=== PATIENT | female | born 1985 | race Caucasian/White ===

== ENCOUNTER 2017-04-04 18:45 | Emergency (ER) | payer BC ==
[~2017-04-04] VITALS: Ht 162.6 cm; Wt 84.6 kg
[2017-04-04 18:50] VITALS: TEMP 36.7; Ht 162.6 cm; Wt 84.6 kg
[2017-04-04] MEDS ORDERED: ONDANSETRON INJ 2 MG/ML 2 ML VIAL IV STA ×2 (18:57→20:49)
[2017-04-04] MEDS ORDERED: SODIUM CHLORIDE 0.9% 1000ML 1,000 ML IV STA (18:57)
[2017-04-04] MEDS ORDERED: FLUO10CA48 PO (19:19)
[2017-04-04 19:21] LABS: COMPLETE YES; EOS % 0.1 %; HEMATOCRIT 44.2 % (37-47); IG% 0.2 %; LYMPH % 5.3 %; LYMPH ABS # 0.49 K/uL (1.2-3.4); MEAN CELL VOLUME 95.1 fL (80-100); MEAN CORPUSCULAR HEMOGLOBIN 33.3 pg (25-34); MEAN CORPUSCULAR HGB CONC 35.1 g/dl (32-36); MEAN PLATELET VOLUME 11.3 fL (7.4-10.4); NEUT % 90.4 %; PLATELET COUNT 258 K/uL (130-400); RED BLOOD COUNT 4.65 M/uL (4.2-5.4); WHITE BLOOD COUNT 9.17 K/uL (4.8-10.8)
[2017-04-04 19:36] LABS: URINE APPEARANCE CLOUDY (CLEAR); URINE BILIRUBIN NEG (NEG); URINE COLOR YELLOW; URINE EPITHELIAL CELL AUTO >30 /lpf (0-5); URINE NITRITE NEG (NEG); URINE PH 8.5 (4.5-7.5); URINE SPECIFIC GRAVITY 1.027 (1.000-1.030); UROBILINOGEN NEG (NEG)
[2017-04-04 19:38] LABS: MANUAL MICROSCOPIC REQUIRED? NO; REVIEW REQ? YES; SULFASALICYLIC ACID NEG (NEG)
[2017-04-04 19:42] LABS: BUN/CREATININE RATIO 19.1 (10-20); CALCIUM 8.9 mg/dl (8.5-10.1); CREATININE 0.81 mg/dl (0.60-1.20); POTASSIUM 3.5 mmol/L (3.5-5.1)
--- NOTE | 2017-04-04 19:58 | DIAGNOSTIC IMAGING REPORT ---
ABD/PELVIS WITHOUT FOR STONE CLINICAL HISTORY: 31 years-old Female presenting with FLANK PAIN-right, right lower quadrant pain for 3 days, now worsening with vomiting. TECHNIQUE: Multidetector CT of the abdomen and pelvis was performed without the use of intravenous contrast. IV contrast: None. A dose lowering technique was used consistent with the principles of ALARA (as low as reasonably achievable). COMPARISON: None. CT DOSE (mGy.cm): The estimated cumulative dose is 535.90 mGy.cm. FINDINGS: Jewelry Store Manager topogram: Unremarkable. Lung bases: Minimal dependent changes likely atelectasis. Normal heart size. No pericardial or pleural effusion. Liver: Normal morphology. Normal density. Biliary: No gross biliary ductal dilatation allowing for noncontrast technique. Normal gallbladder. Pancreas: Normal noncontrast appearance. Spleen: Normal noncontrast appearance. Adrenal glands: Normal noncontrast appearance. Kidneys and ureters: Normal noncontrast appearance. No nephrolithiasis. No hydronephrosis. Normal ureters. Bladder: Incompletely evaluated secondary to underdistention. Pelvic organs: Uterus and ovaries normal. Bowel: Normal appendix. No bowel obstruction. Peritoneal cavity: Trace free fluid in the pelvis. Lymph nodes: No gross lymphadenopathy allowing for noncontrast technique. Vasculature: Normal noncontrast appearance. Abdominal wall: Small fat-containing umbilical hernia. Musculoskeletal: Bilateral pars defects of L5. IMPRESSION: 1. No acute intra-abdominal pathology. No appendicitis. No nephrolithiasis. Electronically signed by: Ralf Landaverde M.D. 04/04/2017 7:56 PM Dictated Date/Time: 04/04/2017 7:51 PM
[2017-04-04] MEDS ORDERED: CEFTRIAXONE SOD INJ 1 GM ADDVIAL IV STA (20:49)
[2017-04-04] MEDS ORDERED: CIPR-255 PO (20:52)
[2017-04-04 21:40] VITALS: BP 102/64; PULSE 85; O2SAT 99
--- NOTE | 2017-04-04 21:45 | EMERGENCY ROOM VISIT NOTE ---
History Report prepared by Kimberly: Monica Villela Under the Supervision of: Dr. Seth Cedeno M.D. First contact with patient: 18:54 Chief Complaint: FLANK PAIN Stated Complaint: PAIN IN R SIDE, VOMITTING, FEVER History of Present Illness The patient is a 31 year old female who presents to the Emergency Room with complaints of waxing and waning right-sided flank pain beginning 3 days ago. The patient notes the pain started around her bellybutton and migrated to the right side. She rates the pain at a 5/10. The patient also reports vomiting since 1100 this morning, and she also reports having diarrhea. She states that bending over exacerbates her pain. The patient reports that her last menstrual period was 2 weeks ago. Pt denies LOC, headache, fevers, chills, diaphoresis, visual changes, neck pain, chest pain, breathing difficulties, back pain, melena , hematochezia, urinary symptoms, numbness, weakness, lymphadenopathy, rash, or other complaints. The patient reports a history of gallbladder problems. She denies a history of an appendectomy. Source of History: patient Onset: 3 days ago Position: other (right flank ) Symptom Intensity: rated at a 5/10 Timing: waxes/wanes Modifying Factors (Worsening): other (bending over ) Associated Symptoms: + vomiting, + diarrhea, No chest pain Review of Systems See HPI for pertinent positives and negatives. A total of ten systems were reviewed and were otherwise negative. Past Medical & Surgical Medical Problems: (1) No active medical problems Family History FH: gallbladder disease Social History Smoking Status: Never Smoker Marital Status: Current/Historical Medications Scheduled Ciprofloxacin Hcl (Cipro), 500 MG PO BID Scheduled PRN Fluoxetine (Prozac), 10 MG PO DAILY PRN for Anxiety Allergies Coded Allergies: No Known Allergies (Unverified , 04/04/17) Physical Exam Vital Signs Date Time Temp Pulse Resp B/P (MAP) Pulse Ox O2 Delivery O2 Flow Rate FiO2 04/04/17 20:45 78 20 111/60 98 Room Air 04/04/17 18:50 36.7 117 20 139/82 96 Room Air Physical Exam GENERAL: Awake, alert, uncomfortable-appearing, in no distress HENT: Normocephalic, atraumatic. Oropharynx unremarkable. EYES: Normal conjunctiva. Sclera non-icteric. NECK: Supple. No nuchal rigidity. FROM. No JVD. RESPIRATORY: Clear to auscultation. CARDIAC: Regular rate, normal rhythm. Extremities warm and well perfused. Pulses equal. ABDOMEN: Soft, non-distended. Right lower quadrant tenderness. Rebound and guarding present. No masses. RECTAL: Deferred. MUSCULOSKELETAL: Chest examination reveals no tenderness. The back is symmetrical on inspection without obvious abnormality. There is no CVA tenderness to palpation. No joint edema. LOWER EXTREMITIES: Calves are equal size bilaterally and non-tender. No edema. No discoloration. NEURO: Normal sensorium. No sensory or motor deficits noted. SKIN: No rash or jaundice noted. Medical Decision & Procedures ER Provider Diagnostic Interpretation: Radiology results as stated below per my review and radiologist interpretation: ABD/PELVIS WITHOUT FOR STONE CLINICAL HISTORY: 31 years-old Female presenting with FLANK PAIN-right, right lower quadrant pain for 3 days, now worsening with vomiting. TECHNIQUE: Multidetector CT of the abdomen and pelvis was performed without the use of intravenous contrast. IV contrast: None. A dose lowering technique was used consistent with the principles of ALARA (as low as reasonably achievable). COMPARISON: None. CT DOSE (mGy.cm): The estimated cumulative dose is 535.90 mGy.cm. FINDINGS: Electromechanical Technician topogram: Unremarkable. Lung bases: Minimal dependent changes likely atelectasis. Normal heart size. No pericardial or pleural effusion. Liver: Normal morphology. Normal density. Biliary: No gross biliary ductal dilatation allowing for noncontrast technique. Normal gallbladder. Pancreas: Normal noncontrast appearance. Spleen: Normal noncontrast appearance. Adrenal glands: Normal noncontrast appearance. Kidneys and ureters: Normal noncontrast appearance. No nephrolithiasis. No hydronephrosis. Normal ureters. Bladder: Incompletely evaluated secondary to underdistention. Pelvic organs: Uterus and ovaries normal. Bowel: Normal appendix. No bowel obstruction. Peritoneal cavity: Trace free fluid in the pelvis. Lymph nodes: No gross lymphadenopathy allowing for noncontrast technique. Vasculature: Normal noncontrast appearance. Abdominal wall: Small fat-containing umbilical hernia. Musculoskeletal: Bilateral pars defects of L5. IMPRESSION: 1. No acute intra-abdominal pathology. No appendicitis. No nephrolithiasis. Electronically signed by: Ralf Landaverde M.D. 04/04/2017 7:56 PM Dictated Date/Time: 04/04/2017 7:51 PM Laboratory Results 04/04/17 19:05 Red Blood Count 4.65, Mean Corpuscular Volume 95.1, Mean Corpuscular Hemoglobin 33.3, Mean Corpuscular Hemoglobin Concent 35.1, Mean Platelet Volume 11.3, Neutrophils (%) (Auto) 90.4, Lymphocytes (%) (Auto) 5.3, Monocytes (%) (Auto) 4.0, Eosinophils (%) (Auto) 0.1, Basophils (%) (Auto) 0.0, Neutrophils # (Auto) 8.28, Lymphocytes # (Auto) 0.49, Monocytes # (Auto) 0.37, Eosinophils # (Auto) 0.01, Basophils # (Auto) 0.00 04/04/17 19:05 Test 04/04/17 19:00 04/04/17 19:05 Urine Color YELLOW Urine Appearance CLOUDY (CLEAR) Urine pH 8.5 (4.5-7.5) Urine Specific Stow 1.027 (1.000-1.030) Urine Protein NEG (NEG) Urine Glucose (UA) NEG (NEG) Urine Ketones 3+ (NEG) Urine Occult Blood NEG (NEG) Urine Nitrite NEG (NEG) Urine Bilirubin NEG (NEG) Urine Urobilinogen NEG (NEG) Urine Leukocyte Esterase TRACE (NEG) Urine WBC (Auto) 5-10 /hpf (0-5) Urine RBC (Auto) 5-10 /hpf (0-4) Urine Hyaline Casts (Auto) 1-5 /lpf (0-5) Urine Epithelial Cells (Auto) >30 /lpf (0-5) Urine Bacteria (Auto) 1+ (NEG) Urine Test NEG (NEG) White Blood Count 9.17 K/uL (4.8-10.8) Red Blood Count 4.65 M/uL (4.2-5.4) Hemoglobin 15.5 g/dL (12.0-16.0) Hematocrit 44.2 % (37-47) Mean Corpuscular Volume 95.1 fL (80-100) Mean Corpuscular Hemoglobin 33.3 pg (25-34) Mean Corpuscular Hemoglobin Concent 35.1 g/dl (32-36) Platelet Count 258 K/uL (130-400) Mean Platelet Volume 11.3 fL (7.4-10.4) Neutrophils (%) (Auto) 90.4 % Lymphocytes (%) (Auto) 5.3 % Monocytes (%) (Auto) 4.0 % Eosinophils (%) (Auto) 0.1 % Basophils (%) (Auto) 0.0 % Neutrophils # (Auto) 8.28 K/uL (1.4-6.5) Lymphocytes # (Auto) 0.49 K/uL (1.2-3.4) Monocytes # (Auto) 0.37 K/uL (0.11-0.59) Eosinophils # (Auto) 0.01 K/uL (0-0.5) Basophils # (Auto) 0.00 K/uL (0-0.2) RDW Standard Deviation 44.5 fL (36.4-46.3) RDW Coefficient of Variation 12.9 % (11.5-14.5) Immature Granulocyte % (Auto) 0.2 % Immature Granulocyte # (Auto) 0.02 K/uL (0.00-0.02) Anion Gap 7.0 mmol/L (3-11) Est Creatinine Clear Calc Drug Dose 105.9 ml/min Estimated GFR () 112.2 Estimated GFR (Non- 96.8 BUN/Creatinine Ratio 19.1 (10-20) Calcium Level 8.9 mg/dl (8.5-10.1) Total Bilirubin 0.6 mg/dl (0.2-1) Direct Bilirubin 0.1 mg/dl (0-0.2) Aspartate Amino Transf (AST/SGOT) 12 U/L (15-37) Alanine Aminotransferase (ALT/SGPT) 21 U/L (12-78) Alkaline Phosphatase 111 U/L (45-117) Total Protein 8.0 gm/dl (6.4-8.2) Albumin 4.1 gm/dl (3.4-5.0) Lipase 116 U/L (73-393) Laboratory results reviewed by me Medications Administered Medications (Trade) Dose Ordered Sig/Evans Route Start Time Stop Time Status Last Admin Dose Admin Ondansetron HCl (Zofran Inj) 4 mg NOW STAT IV 04/04/17 18:57 04/04/17 18:59 DC 04/04/17 19:12 4 MG Sodium Chloride 1,000 ml @ 999 mls/hr Q1H1M STAT IV 04/04/17 18:57 04/04/17 19:57 DC 04/04/17 18:57 999 MLS/HR Ceftriaxone Sodium (Rocephin Inj) 1 gm NOW STAT IV 04/04/17 20:49 04/04/17 20:52 DC 04/04/17 21:02 1 GM Ondansetron HCl (Zofran Inj) 4 mg NOW STAT IV 04/04/17 20:49 04/04/17 20:52 DC 04/04/17 21:02 4 MG ED Course 1849: The patient was evaluated in room C2B. A complete history and physical exam was performed. 1856: Ordered Sodium Chloride 1,000 ml @ 999 mls/hr IV, Zofran Inj 4 mg IV. 2036: I re-evaluated the patient and she is doing better but is still a little nauseated, so I will order more medication. 2048: Ordered Zofran Inj 4 mg IV, Rocephin Inj 1 gm IV. 2114: I reevaluated the patient. Discussed results and discharge instructions: She verbalized understanding and agreement. The patient is ready for discharge. Medical Decision Triage Nursing notes reviewed. The patient's presentation and history were concerning for flank and abdominal pain. Patient denied any vaginal symptoms. She had a normal period. She denies any low pelvic pain. Etiologies such as appendicitis, diverticulitis, obstruction, inflammatory bowel disease, renal colic, PUD, biliary pathology, pancreatitis, mesenteric ischemia, aortic pathology, infections, genitourinary, UTI, perforated viscus, , ovarian pathology, pelvic pathology, as well as others were entertained. Patient was evaluated. She declined analgesia. She was given normal saline hydration and Zofran. I reassessed her she did note some residual nausea and was given another dose of Zofran. The patient had an unremarkable CBC and chemistry panel. Urinalysis was somewhat concerning. CT imaging was performed and revealed no evidence of appendicitis. The patient was reexamined. Her abdominal pain was improved. She did not have any peritoneal findings. She did not have any lower deep abdominal tenderness/pelvic tenderness. The patient will be treated for a urinary tract infection based upon her symptoms, fevers, vomiting, flank pain. Urine culture is processing. She was given a dose of IV Rocephin. Cipro was prescribed. She will follow-up with her primary office. If she worsens in any way she will come back to the Emergency Room for reevaluation. I gave my usual and customary discussion regarding this issue.By the evaluation outlined above other emergent etiologies such as those listed in the differential, as well as others, were deemed relatively unlikely. The patient was educated about the findings as listed above. All questions were answered and the patient was pleased with the treatment. Return instructions were outlined and the patient was discharged in stable condition. The patient was referred to her PCP for follow-up for a recheck of the current condition. Medication Reconcilliation Current Medication List: was personally reviewed by me Blood Pressure Screening Patient's blood pressure: Normal blood pressure Impression Primary Impression: Right sided abdominal pain Additional Impression: UTI (urinary tract infection) Scribe Attestation The scribe's documentation has been prepared under my direction and personally reviewed by me in its entirety. I confirm that the note above accurately reflects all work, treatment, procedures, and medical decision making performed by me. Departure Information Dispostion Home / Self-Care Prescriptions Ciprofloxacin Hcl (CIPRO) 500 Mg Tab 500 MG PO BID, #14 TAB Prov: Seth Cedeno MD 04/04/17 Referrals No Doctor, Assigned (PCP) Yany Ventura D.O. Forms HOME CARE DOCUMENTATION FORM, IMPORTANT VISIT INFORMATION Patient Instructions My [facility] Additional Instructions Ciprofloxacin(Cipro) 500mg: Take one pill twice daily for 7 days for your urine infection. All antibiotics can cause diarrhea. If this occurs and you feel worse or it does not resolve in 1-2 days follow up with your doctor or return to the Emergency Department as this could be signs of serious underlying problems. If you experience any pain in your tendons or any tendon injury return to the ER for re-evaluation. Any medication can cause an allergic reaction, stop the pills immediately and return to the ER for rash, hives, breathing difficulties, or swelling. Zofran 4 mg oral dissolving tablets: take one tablet and allow it to melt in your mouth every 4 hours as needed for nausea. Ibuprofen(Motrin, Advil) may be used for fever or pain. Use 600mg every six hours as needed. Take with food. Avoid using more than 2400mg in a 24 hour period. Do not use 2400mg per day for more than three consecutive days without physician direction. Prolonged inappropriate use can lead to stomach upset or ulcers. (AND/OR) Acetaminophen(Tylenol) may be used for fever or pain. Use 1000mg every six hours as needed. Avoid using more than 4000mg in a 24 hour period. Rest and drink plenty of fluids. Continue current medications. Return to the ER immediately for worsening or persistent abdominal pain, vomiting, fevers, back or flank pain, worsening of your condition, or as needed. Follow up with your primary physician next week for a recheck of the current condition. Problem Qualifiers
== END 2017-04-04 21:46 | disposition home or self-care (01) ==
LOC: C.EDB 18:47 → C.EDC 21:46
DX: R10.31 Right lower quadrant pain (principal); N39.0 Urinary tract infection, site not specified